=== PATIENT | female | born 1970 | race Caucasian/White ===

== ENCOUNTER 2016-12-10 17:35 | Emergency (ER) | payer BC, SELFPAY ==
[2016-12-10 13:57] LABS: BASOPHILS 0.1 %; BASOPHILS ABSOLUTE 0.01 10/3/uL (0.0-0.16); EOSINOPHILS 0.6 %; EOSINOPHILS ABSOLUTE 0.08 10/3/uL (0.0-0.53); ER CBC TAT 0 Hrs 07 Mins; HEMATOCRIT 41.6 % (36.0-48.0); HEMOGLOBIN 13.6 g/dL (12.0-16.0); IMMATURE GRANULOCYTES 0.2 %; IMMATURE GRANULOCYTES ABSOLUTE 0.03 10/3/uL (0.0-0.11); LYMPHOCYTES 25.7 %; LYMPHOCYTES ABSOLUTE 3.58 10/3/uL (0.67-4.30); MANUAL DIFF NO %; MEAN CORPUS HGB CONC 32.7 g/dL (32.0-36.0); MEAN CORPUSCULAR HEMOGLOB 31.7 pg (26.0-34.0); MEAN PLATELET VOLUME 10.7 fL (9.2-13.0); MONOCYTES 10.3 %; MONOCYTES ABSOLUTE 1.43 10/3/uL (0.21-1.20); NEUTROPHILS 63.1 %; NEUTROPHILS ABSOLUTE 8.78 10/3/uL (2.02-8.40); PLATELET COUNT 244 10/3/uL (150-400); RBC DISTRIBUTION WIDTH 13.8 % (12.0-16.0); RED CELL COUNT 4.29 10/6/uL (4.0-5.6); WHITE BLOOD CELLS 13.9 10/3/uL (4.5-10.5)
[2016-12-10 14:03] LABS: INTERNATIONAL NORMAL RATI 1.1 UNITS (-); PARTIAL THROMBO TIME 23.7 SEC (22.5-37.2); PROTIME (NOT ORD) 14.1 SEC (12.0-14.5)
[2016-12-10 14:12] LABS: BUN (BLOOD UREA NITROGEN) 24 MG/DL (6-23); CALCIUM, SERUM 8.3 MG/DL (8.5-10.4); CHEST PAIN PROFILE TAT 0 Hrs 22 Mins; CHLORIDE, SERUM 104 MMOL/L (96-112); CO2 (CARBON DIOXIDE) 32 MMOL/L (24-34); CREATININE 0.67 MG/DL (0.55-1.02); GFR AFRICAN AMERICAN 123 ML/MIN (>=60); GFR NON AFRICAN AMERICAN 106 ML/MIN (>=60); GLUCOSE, SERUM 84 MG/DL (60-99); POTASSIUM, SERUM 3.3 MMOL/L (3.5-5.3); SODIUM, SERUM 144 MMOL/L (135-148); TROPONIN I <0.02 NG/ML (<0.05)
[2017-02-13] MEDS ORDERED: EXCEDRIN EXTRA1 EACH PO (13:07)
[2017-02-13] MEDS ORDERED: T3 PO (13:08)
== END 2016-12-10 17:36 | disposition home or self-care (01) ==
LOC: ER 17:35
PROVIDERS: Emergency Medicine
DX: R00.2 Palpitations (principal); B02.9 Zoster without complications; J44.9 Chronic obstructive pulmonary disease, unspecified; Z87.442 Personal history of urinary calculi; Z90.710 Acquired absence of both cervix and uterus
CPT/HCPCS: 71020; 80048; 83735; 84484; 85025; 85610; 85730; 93005; 99285

== ENCOUNTER 2017-02-18 09:38 | Day surgery (SDC) | payer BC, SELFPAY ==
[2017-02-14 14:59] LABS: BASOPHILS 0.5 %; BASOPHILS ABSOLUTE 0.03 10/3/uL (0.0-0.16); EOSINOPHILS 2.9 %; EOSINOPHILS ABSOLUTE 0.17 10/3/uL (0.0-0.53); HEMATOCRIT 40.8 % (36.0-48.0); HEMOGLOBIN 13.3 g/dL (12.0-16.0); LYMPHOCYTES 42.5 %; LYMPHOCYTES ABSOLUTE 2.51 10/3/uL (0.67-4.30); MEAN CORPUS HGB CONC 32.6 g/dL (32.0-36.0); MEAN CORPUSCULAR HEMOGLOB 31.6 pg (26.0-34.0); MEAN CORPUSCULAR VOLUME 96.9 fL (80-100); MEAN PLATELET VOLUME 10.4 fL (9.2-13.0); MONOCYTES 4.9 %; MONOCYTES ABSOLUTE 0.29 10/3/uL (0.21-1.20); NEUTROPHILS 49.2 %; PLATELET COUNT 205 10/3/uL (150-400); RBC DISTRIBUTION WIDTH 12.9 % (12.0-16.0); RED CELL COUNT 4.21 10/6/uL (4.0-5.6)
[2017-02-14 15:04] LABS: MANUAL DIFF NO %; WHITE BLOOD CELLS 5.9 10/3/uL (4.5-10.5)
[2017-02-14 15:15] LABS: BUN (BLOOD UREA NITROGEN) 11 MG/DL (6-23); CALCIUM, SERUM 8.7 MG/DL (8.5-10.4); CHLORIDE, SERUM 110 MMOL/L (96-112); CO2 (CARBON DIOXIDE) 30 MMOL/L (24-34); CREATININE 0.73 MG/DL (0.55-1.02); GFR AFRICAN AMERICAN 115 ML/MIN (>=60); GFR NON AFRICAN AMERICAN 99 ML/MIN (>=60); SODIUM, SERUM 144 MMOL/L (135-148)
[2017-02-14 15:16] LABS: GLUCOSE, SERUM 118 MG/DL (60-99); POTASSIUM, SERUM 3.8 MMOL/L (3.5-5.3)
--- NOTE | ~2017-02-18 | OP ---
Record Of Operation [facility] [address] [place]. [address] NAME: JULI WHITE : 72 STATUS : [facility]#: [id number] AGE: 46 ADM/REG DATE : 02/18/17 MR#: [id number] REPORT SERV DATE: 02/19/17 DICTATED BY: Ye NARANJO DATE: 02/18/17 REPORT STATUS : Draft TRANSCRIBED BY: MODChapis DATE: 02/18/17 DATE OF PROCEDURE: 02/18/2017 PREOPERATIVE DIAGNOSIS: Right renal pelvic stone, 1.1 cm. POSTOPERATIVE DIAGNOSIS: Right renal pelvic stone, 1.1 cm. PROCEDURE: Right extracorporeal shock wave lithotripsy. SURGEON: Ye Naranjo M.D. ANESTHESIA: MAC. COMPLICATIONS: None. DRAINS: None. BRIEF HISTORY: Ms. White is a 46-year-old white female with recurrent urolithiasis, seen by me for the first time last week with right-sided flank pain, stones by ultrasound, and a KUB that showed a 1.1 cm stone at the right UPJ. She was supposed to get a CT scan in the interim, but I could not find that; at any rate, I am confident that this stone is the source of her pain. We discussed the options including a percutaneous management and ESWL. We decided to proceed with ESWL, as she had success in the past. The risk of bleeding, infection, anesthesia, need for retreatment, endoscopy, etc. were discussed. There were no unanswered questions. DESCRIPTION OF PROCEDURE: Under excellent MAC anesthesia, the patient was placed supine on the [employer] table. The compact Delta tube machine was used to fragment this stone and it appeared that we had some reasonable success. She was given a total of 2500 shocks at a power level up to 4.0. Tolerated the procedure well. We are planing to discharge her as an outpatient with the following instructions. DISCHARGE INSTRUCTIONS: 1. Home today. 2. Strain urine and save any stone fragments. 3. Call for intractable pain, fever, etc. 4. Percocet 5/325 one to two p.o. q.4 hours p.r.n. pain, #25. 5. Tamsulosin 0.4 mg one p.o. daily 30 minutes after the same meal, #14 with three refills. TRU/JOSH Ye Naranjo M.D. Record Of Operation [address] [place]. [address] NAME: CINDYJULI : 72 STATUS : [facility] PAT#: [id number] AGE: 46 ADM/REG DATE : 02/18/17 MR#: [id number] REPORT SERV DATE: 02/19/17 DICTATED BY: Ye NARANJO DATE: 02/18/17 REPORT STATUS : Draft TRANSCRIBED BY: JOSH DATE: 02/18/17 / [id number] CC: Ed Knutson Paul E
[~2017-02-18 09:38] MED LIST: EXCEDRIN EXTRA1 EACH PO; T3 PO
[2017-02-18 11:08] LABS: PFA (COL/EPI) 93 SEC (72-180)
== END 2017-02-18 17:00 | disposition home or self-care (01) ==
LOC: SDC 09:38
PROC: 0TF3XZZ Fragmentation in Right Kidney Pelvis, External Approach (ICD-10-PCS; principal; 2017-02-18 12:00)
DX: N20.0 Calculus of kidney (principal); G43.909 Migraine, unspecified, not intractable, without status migrainosus; M19.90 Unspecified osteoarthritis, unspecified site; G47.33 Obstructive sleep apnea (adult) (pediatric); Z87.442 Personal history of urinary calculi; Z90.710 Acquired absence of both cervix and uterus; Z79.82 Long term (current) use of aspirin; Z79.891 Long term (current) use of opiate analgesic; Z98.891 History of uterine scar from previous surgery; Z90.49 Acquired absence of other specified parts of digestive tract; Z90.89 Acquired absence of other organs
CPT/HCPCS: 50590; 74000; 80048; 85025; 85576; A9270-GY; J2250; J2405

== ENCOUNTER 2017-05-19 13:34 | Emergency (ER) | payer BC | END 2017-05-19 14:53 | disposition home or self-care (01) | LOC: ER 13:34 | DX: J02.0 Streptococcal pharyngitis (principal); Z79.82 Long term (current) use of aspirin; Z79.899 Other long term (current) drug therapy | CPT/HCPCS: 87880; 96372; 99284; J0561 ==